=== PATIENT | female | born 1940 | race Caucasian/White ===

== ENCOUNTER → 2016-11-07 | Outpatient (CLI) | payer MEDICARE ==
--- NOTE | 2016-11-07 13:17 | CT ---
EXAM DESCRIPTION: CT LUMBAR SPINE WITHOUT IV CONTRAST CLINICAL HISTORY: LUMBAR SPINE DISC DEGENERATIVE DISEASE COMPARISON: None. TECHNIQUE: Non contrast transaxial CT images of the lumbar spine are obtained with coronal and sagittal reconstructed images. CT scan was done according to ALARA (As Low as Reasonably Achievable). GENERAL Mild anterior wedging of the superior endplate of T12 is seen. There is mild curvature of the thoracolumbar spine with convexity towards the right. Otherwise normal lumbar lordosis is seen. The osseous structures show diffuse osteopenia. Visualized intra-abdominal and retroperitoneal structures show moderate atherosclerotic disease. T11-12: Mild diffuse disc space narrowing is seen without significant spinal canal stenosis or foraminal encroachment. T12-L1: Moderate to severe disc space narrowing more prominent anteriorly with vacuum disc phenomenon is seen. There is less than 3 mm broad-based disc bulge without significant spinal canal stenosis or foraminal encroachment. L1-2 Mild diffuse disc space narrowing is seen. There is 2-3 mm broad-based disc bulge flattening the ventral surface of the thecal sac contributing to mild bilateral foraminal encroachment. L2-3 Mild diffuse disc space narrowing is seen. There is 2-3 mm broad-based disc bulge eccentric towards the left flattening the ventral surface of the thecal sac contributing to mild spinal canal stenosis with mild bilateral foraminal encroachment. L3-4 No significant disc space narrowing. Mild facet hypertrophy. No spinal canal stenosis or significant foraminal encroachment. L4-5 No disc space narrowing. There is a 4 mm broad-based disc bulge flattening the ventral surface of the thecal sac. Mild bilateral facet hypertrophic and degenerative changes are seen. The thecal sac measures 9 mm AP x 13 mm transverse. There is mild bilateral foraminal encroachment. L5-S1 Disc desiccation and vacuum disc with severe disc space narrowing is seen. There is 4-5 mm broad-based disc bulge mildly flattening the ventral surface of the thecal sac contributing to moderate to severe right and moderate left foraminal encroachment. Mild bilateral facet hypertrophy and mild ligamentum flavum thickening is seen. IMPRESSION: Osteopenia of the osseous structures. Age indeterminate but likely chronic anterior wedge compression fracture deformity of T12. Mild dextrocurvature at the thoracolumbar junction. Multilevel disc degenerative change and facet arthropathy of the lumbar spine is most significant at T12-L1 and L5-S1. Multifactorial right greater than left foraminal encroachment is seen at L5-S1 with mild spinal canal stenosis at L4-5. Electronically signed by: Osbaldo Rudd MD 11/07/2016 13:14
== END | disposition home or self-care (01) ==
LOC: YCFC.O 11:43
PROVIDERS: ATTEND Anesthesiology Pain Medicine
DX: M51.36 Other intervertebral disc degeneration, lumbar region (principal)

== ENCOUNTER 2017-01-02 05:34 | Day surgery (SDC) | payer MEDICARE ==
[2017-01-02] MEDS ORDERED: methylPREDNISolone ACETATE 80 MG/ML VIAL ONE (11:02)
[2017-01-02] MEDS ORDERED: SODIUM BICARBONATE VIAL 50 MEQ/50 ML VIAL ONE (11:02)
[2017-01-02] MEDS ORDERED: LIDOCAINE 1% MPF 5 ML VIAL ONE (11:02)
[2017-01-02] MEDS ORDERED: SODIUM CHLORIDE 0.9% 10 ML VIAL ONE (11:02)
[2017-01-02 14:22] VITALS: BP 137/80; TEMP 98.3; O2SAT 99
== END 2017-01-02 14:26 | disposition home or self-care (01) ==
LOC: AMB 05:34
PROVIDERS: ATTEND Anesthesiology Pain Medicine
DX: M51.16 Intervertebral disc disorders with radiculopathy, lumbar region (principal); M96.1 Postlaminectomy syndrome, not elsewhere classified; M50.30 Other cervical disc degeneration, unspecified cervical region; Z87.891 Personal history of nicotine dependence; Z88.8 Allergy status to other drugs, medicaments and biological substances; Z79.899 Other long term (current) drug therapy
CPT/HCPCS: 62323; 76000; J1030

== ENCOUNTER → 2017-01-23 | Outpatient (CLI) | payer MEDICARE | END | disposition home or self-care (01) | LOC: LAB.O 21:40 → BFHH 21:40 | PROVIDERS: ATTEND Internal Medicine Hematology & Oncology | DX: J44.1 Chronic obstructive pulmonary disease with (acute) exacerbation (principal); D64.9 Anemia, unspecified; I10 Essential (primary) hypertension ==

== ENCOUNTER 2017-01-30 11:00 | Day surgery (SDC) | payer MEDICARE ==
[2017-01-30] MEDS ORDERED: SODIUM CHLORIDE 0.9% 10 ML VIAL ONE (11:14)
[2017-01-30] MEDS ORDERED: methylPREDNISolone ACETATE 80 MG/ML VIAL ONE (11:15)
[2017-01-30] MEDS ORDERED: SODIUM BICARBONATE VIAL 50 MEQ/50 ML VIAL ONE (11:15)
[2017-01-30] MEDS: LIDOCAINE 1% MPF 5 ML VIAL ONE ×2 (13:36→13:38)
[2017-01-30 14:01] VITALS: BP 140/74; TEMP 97.4; O2SAT 95
--- NOTE | 2017-01-31 10:26 | CT ---
EXAM DESCRIPTION: Chest w/Contrast CLINICAL HISTORY: 76 years, Female, NON HODGKIN LYMPHOMA COMPARISON: None TECHNIQUE: Thin-section axial CT images are obtained during rapid bolus administration of nonionic IV contrast media. Reconstructed MPR images are created and reviewed as well. This exam was performed according to our departmental dose-optimization program, which includes automated exposure control, adjustment of the mA and/or kV according to patient size and/or use of iterative reconstruction technique. FINDINGS: Bolus enhanced examination demonstrates mild diffuse emphysematous changes in both lung hagan with minor scarring in the anterior apex on the left in the lateral mid lung field on the right with mild elevation of the left hemidiaphragm posteriorly. No dense consolidation or pulmonary masses or pleural effusions are seen. Significant advanced interstitial lung disease is not apparent. Soft tissue window images demonstrates no evidence of thoracic inlet or mediastinal or paravertebral lymphadenopathy. The hilar regions are unremarkable. Marked kyphosis of the dorsal spine with moderate anterior wedging of a mid dorsal vertebra and mild anterior wedging and loss of height of a lower thoracic vertebra is apparent. IMPRESSION: 1. Chronic emphysematous changes without acute consolidation or pleural effusion or mass with chronic elevation of the left hemidiaphragm. 2. No evidence of mediastinal or hilar or thoracic inlet lymphadenopathy in this patient with non-Hodgkin's lymphoma. 3. Kyphosis of the dorsal spine with multiple compression deformities of the mid and lower dorsal spine, age indeterminate. Electronically signed by: Bharath Curran MD 01/31/2017 10:26 AM CDT
--- NOTE | 2017-01-31 11:02 | CT ---
EXAM DESCRIPTION: CT ABDOMEN AND PELVIS WITH CONTRAST CLINICAL HISTORY: NON HODGKIN LYMPHOMA COMPARISON: None Available. TECHNIQUE: CT of the abdomen and pelvis are performed during IV bolus administration of nonionic contrast. This exam was performed according to our departmental dose-optimization program, which includes automated exposure control, adjustment of the mA and/or kV according to patient size and/or use of iterative reconstruction technique. FINDINGS: Enhanced examination of the abdomen and pelvis with MPR reformatted images demonstrates scoliosis of the thoracolumbar spine with degenerative disease and elevation of the left hemidiaphragm. The liver and spleen and gallbladder are unremarkable with some prominence of the bile duct system but no evidence of obstruction. Large and small bowel caliber is normal. Retroperitoneal or mesenteric adenopathy or ascites is not apparent. The region of the pancreas and adrenal glands and kidneys are normal with normal renal enhancement without obstruction. Within the pelvis fluid-filled loops of bowel in a normally distended bladder is present. The anterior abdominal wall is unremarkable. IMPRESSION: 1. Negative examination for retroperitoneal or mesenteric lymphomatous involvement or focal mass within the liver or spleen. 2. Scoliosis and degenerative changes of the spine with aortic calcification without significant aneurysm. 3. Normal bowel caliber without evidence of intraperitoneal mass or ascites. Chronic elevation of the left hemidiaphragm is noted. Electronically signed by: Bharath Curarn MD 01/31/2017 11:01 AM CDT
== END 2017-01-30 14:40 | disposition home or self-care (01) ==
LOC: AMB 11:00
PROVIDERS: ATTEND Anesthesiology Pain Medicine
DX: M51.16 Intervertebral disc disorders with radiculopathy, lumbar region (principal); M54.5 Low back pain; Z88.8 Allergy status to other drugs, medicaments and biological substances; Z79.899 Other long term (current) drug therapy
CPT/HCPCS: 62323; 76000; J1030

== ENCOUNTER → 2017-02-14 | Outpatient (CLI) | payer MEDICARE | LOC: LAB.O 12:05 | PROVIDERS: ATTEND Family Medicine | DX: E83.52 Hypercalcemia (principal) ==

== ENCOUNTER → 2017-02-17 | Outpatient (CLI) | payer MEDICARE ==
--- NOTE | 2017-02-20 10:16 | US ---
EXAM DESCRIPTION: Soft Tissue,Head/Neck CLINICAL HISTORY: 76 years, Female, palpable mass on the neck below the jaw bilaterally COMPARISON: None. TECHNIQUE: Sonographic images used to assess the soft tissues of the neck FINDINGS: On each side there are identical appearing masses which are slightly hyperechoic well-defined and internal normal-appearing blood flow. The right measures 3.5 x 2.4 x 1.4 cm. And the left measures 3.5 x 2.1 x 1.3 cm. IMPRESSION: Not knowing exactly where the patient's neck was ultrasounded these two masses one seen in each bilaterally appear to be salivary glands which appear unremarkable. Else if this is not in the region of the submandibular glands these are nonspecific masses and would recommend follow-up. Electronically signed by: Erick Bagley MD 02/20/2017 10:16 AM CDT
== END | disposition home or self-care (01) ==
LOC: US 09:57
PROVIDERS: ATTEND Family Medicine
DX: E83.52 Hypercalcemia (principal)

== ENCOUNTER → 2017-02-28 | Outpatient (CLI) | payer MEDICARE | LOC: YCFC.O 13:40 | PROVIDERS: ATTEND Anesthesiology Pain Medicine | DX: Z79.891 Long term (current) use of opiate analgesic (principal) ==

== ENCOUNTER → 2017-03-22 | Outpatient (CLI) | payer MEDICARE ==
--- NOTE | 2017-03-23 11:03 | CT ---
Study: CT Chest. Indication: COUGH Technique: CT imaging of the chest obtained without intravenous administration of contrast. This exam was performed according to our departmental dose-optimization program, which includes automated exposure control, adjustment of the mA and/or kV according to patient size and/or use of iterative reconstruction technique. Comparison: January 30, 2017. Findings: Atherosclerosis great vessels, aorta, coronary arteries. Heart size normal. No pathologically enlarged mediastinal or hilar lymphadenopathy identified in the absence of intravenous contrast. Persistent elevation left hemidiaphragm. Thoracic kyphosis redemonstrated with likely remote multilevel wedge deformities. Osteopenia. Emphysema. Image 11, stable 3 mm noncalcified right upper lobe pulmonary nodule peripherally. Several millimetric sub-4 mm noncalcified pulmonary nodules noted in the posterior right lower lobe on image 42. Several additional scattered subpleural noncalcified pulmonary nodule throughout the bilateral lungs and most prominent in the base of the left lower lobe. Several of these demonstrate tree-in-bud configuration. No overt consolidation, pleural effusion, or pneumothorax. Impression: Emphysema with scattered tiny noncalcified pulmonary nodules as above. Several of these demonstrate tree-in-bud configuration which can be seen with infectious process, including atypical entities. Follow-up CT chest in one year recommended. Additional stable findings as above. Electronically signed by: Maximino Boles MD 03/23/2017 11:02 AM CDT
== END | disposition home or self-care (01) ==
LOC: LAB.O 11:39
PROVIDERS: ATTEND Internal Medicine Nephrology
DX: N18.4 Chronic kidney disease, stage 4 (severe) (principal)

== ENCOUNTER → 2017-03-23 | Outpatient (CLI) | payer MEDICARE ==
--- NOTE | 2017-03-24 09:38 | NM ---
EXAM DESCRIPTION: Parathyroid Scan CLINICAL HISTORY: PARATHYROID ADENOMA COMPARISON: None. TECHNIQUE: Following intravenous administration of 20 mCi technetium 99 M sestamibi, anterior and posterior scintigraphic imaging of the neck from the level of the parotid glands through the superior aspect of the heart was performed. SPECT images were also acquired. Findings: Delayed images demonstrate near complete tracer washout from the thyroid gland. The delayed images do not demonstrate any focal abnormal persistent uptake in the region of the parathyroid glands to suggest a parathyroid adenoma. There is physiologic tracer uptake within the myocardium and salivary glands. IMPRESSION Normal parathyroid imaging study. Electronically signed by: Erick Curtis MD 03/24/2017 9:37 AM CDT
== END | disposition home or self-care (01) ==
LOC: NM 08:48
PROVIDERS: ATTEND Internal Medicine Nephrology
DX: N18.4 Chronic kidney disease, stage 4 (severe) (principal); D36.7 Benign neoplasm of other specified sites

== ENCOUNTER → 2017-06-21 | Outpatient (CLI) | payer MEDICARE | LOC: GMAJ 11:43 | PROVIDERS: ATTEND Family Medicine | DX: N18.4 Chronic kidney disease, stage 4 (severe) (principal) ==

== ENCOUNTER → 2017-10-04 | Outpatient (CLI) | payer MEDICARE | END | disposition home or self-care (01) | LOC: LAB 11:09 | PROVIDERS: ATTEND Internal Medicine Nephrology | DX: N18.1 Chronic kidney disease, stage 1 (principal) ==